=== PATIENT | male | born 1975 | race Caucasian/White ===

== ENCOUNTER 2016-12-04 15:59 | Inpatient (IN) | payer OTHER, MEDICARE ==
[2016-12-04] VITALS (7 sets, daily range): BP systolic 121–139; BP diastolic 72–85; PULSE 70–83; RESP 16–22; TEMP 99.3; O2SAT 96–99
[~2016-12-04] VITALS: Ht 185.4 cm; Wt 106.5 kg
--- NOTE | 2016-12-04 16:26 | PD ---
HPI Chief Complaint: trauma alert Time Seen by Provider: 16:08 Travel History International Travel<30 days: No Contact w/Intl Traveler<30days: No History of Present Illness HPI Patient is a 41-year-old male who was brought to the emergency room by [facility] under a trauma alert. As per patient, he had a syncopal episode while at home, reports that his walking and brushed his leg against his bed and fell. Patient reports that he was unable to get up after he fell. Patient reports that he has no sensation laying to his lower extremities. Patient reports that he has had history of lumbar fusion in the past. Patient reports that at baseline, he has no weakness to extremities. Patient with other complaints at this time, denies any headache or dizziness, denies any chest pain or abdominal pain. Allergies-Medications (Allergen,Severity, Reaction): Coded Allergies: Valium (Verified Allergy, Severe, 12/04/16) Review of Systems General / Constitutional: No: Fever Eyes: No: Visual changes HENT: No: Headaches Cardiovascular: No: Chest Pain or Discomfort Respiratory: No: Shortness of Breath Gastrointestinal: No: Abdominal Pain Genitourinary: No: Dysuria Musculoskeletal: No: Pain Skin: No Rash Neurologic: Positive: Syncope, Paresthesia, Sensory Disturbance, No: Weakness Psychiatric: No: Depression Endocrine: No: Polydipsia Hematologic/Lymphatic: No: Easy Bruising Physical Exam Narrative GENERAL: moderate distress SKIN: Focused skin assessment warm/dry. HEAD: Atraumatic. Normocephalic. EYES: Pupils equal and round. No scleral icterus. No injection or drainage. ENT: No nasal bleeding or discharge. Mucous membranes pink and moist. NECK: Trachea midline. No JVD. Patient in c-spine precautions CARDIOVASCULAR: Regular rate and rhythm. No murmur appreciated. RESPIRATORY: No accessory muscle use. Clear to auscultation. Breath sounds equal bilaterally. GASTROINTESTINAL: Abdomen soft, non-tender, nondistended. Patient with no rectal tone on exam, pt with saddle anesthesia MUSCULOSKELETAL: No obvious deformities. No clubbing. No cyanosis. No edema. Patient with lumbar midline tenderness. Patient with no sensation to lower extremities b/l, patient with no muscle tone NEUROLOGICAL: Awake and alert. No obvious cranial nerve deficits. Motor grossly within normal limits. Normal speech. PSYCHIATRIC: Appropriate mood and affect; insight and judgment normal. Data Data Last Documented VS Vital Signs Date Time Temp Pulse Resp B/P Pulse Ox O2 Delivery O2 Flow Rate FiO2 12/04/16 16:40 99 Room Air 12/04/16 16:40 16 12/04/16 16:10 2.00 Orders I-Stat Profile (12/04/16 16:07) I-Stat Creatinine (12/04/16 16:07) Complete Blood Count With Diff (12/04/16 16:07) Prothrombin Time / Inr (Pt) (12/04/16 16:07) Act Partial Throm Time (Ptt) (12/04/16 16:07) Type And Screen (12/04/16 16:07) Chest, Single Ap (12/04/16 16:07) Pelvis, Ap Only (Routine) (12/04/16 16:07) Ct Brain W/O Iv Contrast(Rout) (12/04/16 16:07) Ct Cerv Spine W/O Contrast (12/04/16 16:07) Ct Thor Spine W/O Contrast (12/04/16 16:07) Ct Lumb Spine W/O Contrast (12/04/16 16:07) Iv Access Insert/Monitor (12/04/16 16:07) Ecg Monitoring (12/04/16 16:07) Oximetry (12/04/16 16:07) Oxygen Administration (12/04/16 16:07) Electrocardiogram (12/04/16 16:17) Ckmb (Isoenzyme) Profile (12/04/16 16:17) Troponin I (12/04/16 16:17) Act Partial Throm Time (Ptt) (12/04/16 16:17) Mri L Spine W/O Contrast (12/04/16 ) Admit To Inpatient (12/04/16 ) Vital Signs (Adult) ALEX.QSHIFT (12/04/16 16:32) Intake + Output ALEX.Q8H (12/04/16 16:32) Neuro Checks ALEX.Q1H (12/04/16 16:32) Activity Bed Rest (12/04/16 16:32) Diet Npo (12/04/16 Dinner) Scd / Chucky / Foot Pump ALEX.QSHIFT (12/04/16 16:32) Resp Incentive Spirometry (12/04/16 ) Instruction (12/04/16 16:32) Complete Blood Count With Diff (12/05/16 06:00) Comprehensive Metabolic Panel (12/05/16 06:00) Sodium Chlor 0.9% 1000 Ml Inj (Ns 1000 M (12/04/16 17:00) Sodium Chloride 0.9% Flush (Ns Flush) (12/04/16 16:45) Hydromorphone Pf Inj (Dilaudid Pf Inj) (12/04/16 16:45) Acetamin-Hydrocod 325-5 Mg (Rayland 5-325 (12/04/16 16:45) Acetamin-Hydrocod 325-5 Mg (Rayland 5-325 (12/04/16 16:45) Enalaprilat Inj (Vasotec Inj) (12/04/16 16:45) Ondansetron Inj (Zofran Inj) (12/04/16 16:45) Pantoprazole Inj (Protonix Inj) (12/04/16 17:00) Docusate Sodium (Colace) (12/04/16 21:00) Magnesium Hydroxide Liq (Milk Of Magnesi (12/04/16 16:45) Consult Neurosurgery (12/04/16 ) ^ Initiate Protocol (12/04/16 16:32) Instruction (12/04/16 16:32) [facility] (12/04/16 16:45) Chlorhexidine 2% Cloth (Chlorhexidine 2% (12/05/16 04:00) Chlorhexidine 2% Cloth (Chlorhexidine 2% (12/04/16 16:45) Mrsa Pcr Surveillance (12/04/16 16:32) Inpatient Certification (12/04/16 ) Consult Lauri Gts (12/04/16 ) (Hub Use Only)Inp Phy Cons/Ref (12/04/16 ) Admit Order (Ed Use Only) (12/04/16 17:52) Labs Laboratory Tests Test 12/04/16 16:05 White Blood Count 8.2 TH/MM3 Red Blood Count 4.17 MIL/MM3 Hemoglobin 13.9 GM/DL Bedside Hemoglobin 13.6 G/DL Hematocrit 41.0 % Bedside Hematocrit 40.0 % Mean Corpuscular Volume 98.3 FL Mean Corpuscular Hemoglobin 33.4 PG Mean Corpuscular Hemoglobin 34.0 % Concent Red Cell Distribution Width 13.7 % Platelet Count 195 TH/MM3 Mean Platelet Volume 7.7 FL Neutrophils (%) (Auto) 61.4 % Lymphocytes (%) (Auto) 32.1 % Monocytes (%) (Auto) 4.5 % Eosinophils (%) (Auto) 1.5 % Basophils (%) (Auto) 0.5 % Neutrophils # (Auto) 5.1 TH/MM3 Lymphocytes # (Auto) 2.6 TH/MM3 Monocytes # (Auto) 0.4 TH/MM3 Eosinophils # (Auto) 0.1 TH/MM3 Basophils # (Auto) 0.0 TH/MM3 CBC Comment DIFF FINAL Differential Comment Prothrombin Time 10.7 SEC Prothromb Time International 1.0 RATIO Ratio Activated Partial 30.0 SEC Thromboplast Time Bedside Sodium 141 MMOL/L Bedside Potassium 3.8 MMOL/L Bedside Chloride 104 MMOL/L Bedside Blood Urea Nitrogen 9 MG/DL Bedside Creatinine 0.9 MG/DL Bedside Glucose 97 MG/DL Total Creatine Kinase 47 U/L Troponin I LESS THAN 0.02 NG/ML Blood Type O POSITIVE Antibody Screen NEGATIVE MDM Medical Screen Exam Complete: Yes Emergency Medical Condition: Yes Interpretation(s) Vital Signs Date Time Temp Pulse Resp B/P Pulse Ox O2 Delivery O2 Flow Rate FiO2 12/04/16 16:10 97 Nasal Cannula 2.00 12/04/16 16:05 97 2.00 Differential Diagnosis cauda equina, cord compression, brown Sequard syndrome, Narrative Course 41 year old male who presents to ER with c/o of no feeling to his lower extremities after having a syncopal episode today. patient reports that he has not been able to ambulate or move his lower extremities since his fall. patient has had lumbar fusion in the past. on evaluation, patient with no sensation to b/l lower extremities, patient with no rectal tone, positive for saddle anesthesia after initial trauma assessment and stabilization of patient, patient was brought for ct of his head/neck, t and l spine. Laboratory Tests Test 12/04/16 16:05 White Blood Count 8.2 TH/MM3 (4.0-11.0) Red Blood Count 4.17 MIL/MM3 (4.50-5.90) Hemoglobin 13.9 GM/DL (13.0-17.0) Bedside Hemoglobin 13.6 G/DL (12.0-17.0) Hematocrit 41.0 % (39.0-51.0) Bedside Hematocrit 40.0 % (38.0-51.0) Mean Corpuscular Volume 98.3 FL (80.0-100.0) Mean Corpuscular Hemoglobin 33.4 PG (27.0-34.0) Mean Corpuscular Hemoglobin 34.0 % Concent (32.0-36.0) Red Cell Distribution Width 13.7 % (11.6-17.2) Platelet Count 195 TH/MM3 (150-450) Mean Platelet Volume 7.7 FL (7.0-11.0) Neutrophils (%) (Auto) 61.4 % (16.0-70.0) Lymphocytes (%) (Auto) 32.1 % (9.0-44.0) Monocytes (%) (Auto) 4.5 % (0.0-8.0) Eosinophils (%) (Auto) 1.5 % (0.0-4.0) Basophils (%) (Auto) 0.5 % (0.0-2.0) Neutrophils # (Auto) 5.1 TH/MM3 (1.8-7.7) Lymphocytes # (Auto) 2.6 TH/MM3 (1.0-4.8) Monocytes # (Auto) 0.4 TH/MM3 (0-0.9) Eosinophils # (Auto) 0.1 TH/MM3 (0-0.4) Basophils # (Auto) 0.0 TH/MM3 (0-0.2) CBC Comment DIFF FINAL Differential Comment Prothrombin Time 10.7 SEC (9.8-11.6) Prothromb Time International 1.0 RATIO Ratio Activated Partial 30.0 SEC Thromboplast Time (24.3-30.1) Bedside Sodium 141 MMOL/L (138-146) Bedside Potassium 3.8 MMOL/L (3.5-4.9) Bedside Chloride 104 MMOL/L (98-109) Bedside Blood Urea Nitrogen 9 MG/DL (8-26) Bedside Creatinine 0.9 MG/DL (0.8-1.3) Bedside Glucose 97 MG/DL (60-95) Total Creatine Kinase 47 U/L (39-308) Troponin I LESS THAN 0.02 NG/ML (0.02-0.05) Blood Type O POSITIVE Antibody Screen NEGATIVE Last Impressions Thoracic Spine CT 12/04/16 0866 Signed Impressions: Service Date/Time: Sunday, December 04, 2016 16:15 - CONCLUSION: Negative trauma CT of the thoracic spine. Reynold Tineo MD Pelvis X-Ray 12/04/[id number] Signed Impressions: Service Date/Time: Sunday, December 04, 2016 15:52 - CONCLUSION: The bony pelvic ring is grossly intact. Reynold Tineo MD Lumbar Spine CT 12/04/161606 Signed Impressions: Service Date/Time: Sunday, December 04, 2016 16:15 - CONCLUSION: 1. No evidence of compression of cord or spondylolisthesis. 2. Prior surgery with laminectomy , fusion mass, and interspace plugs L4-S1. Reynold Tineo MD Head CT [id number]/04/[id number] Signed Impressions: Service Date/Time: Sunday, December 04, 2016 16:11 - CONCLUSION: Negative trauma CT brain. Reynold Tineo MD Chest X-Ray [id number]/04/[id number] Signed Impressions: Service Date/Time: Sunday, December 04, 2016 15:52 - CONCLUSION: Negative supine view of the chest. Reynold Tineo MD Cervical Spine CT 12/04/161606 Signed Impressions: Service Date/Time: Sunday, December 04, 2016 16:11 - CONCLUSION: No evidence of compression deformity or spondylolisthesis. Reynold Tineo MD case reviewed with Dr. Hoang who will see patient in consult Critical Care Narrative Aggregate critical care time was 30 minutes. Time to perform other separately billable procedures was not included in the critical care time. My time did not include minutes spent treating any other patients simultaneously or on activities that did not directly contribute to the patient's treatment. The services I provided to this patient were to treat and/or prevent clinically significant deterioration that could result in: , decompensation, deterioration I provided critical care services requiring my management, as noted below: Chart data review, documentation time, medication orders and management, vital sign assessments/reviewing monitor data, ordering and reviewing lab tests, ordering and interpreting/reviewing x-rays and diagnostic studies, care of the patient and discussion of the patient with the admitting physicians. Trauma Alert - Level One Time Surgeon Summoned: 15:42 Time Anesthesiologist Summoned: 15:46 Diagnosis Diagnosis: Primary Impression: Trauma Admitting Physician Requests: Admit Cristal Asif DO Dec 04, 2016 16:26
[2016-12-04 16:31] LABS: AUTOMATED NEUTROPHIL # 5.1 TH/MM3 (1.8-7.7); BASOPHIL % 0.5 % (0.0-2.0); EOSINOPHIL # 0.1 TH/MM3 (0-0.4); EOSINOPHIL % 1.5 % (0.0-4.0); HEMO FLAGS DIFF FINAL; LYMPH % 32.1 % (9.0-44.0); LYMPHOCYTE # 2.6 TH/MM3 (1.0-4.8); MEAN CELL VOLUME 98.3 FL (80.0-100.0); MEAN CORPUSCULAR HEMOGLOBIN 33.4 PG (27.0-34.0); MONO % 4.5 % (0.0-8.0); NEUT % 61.4 % (16.0-70.0); PLATELET COUNT 195 TH/MM3 (150-450); RED BLOOD COUNT 4.17 MIL/MM3 (4.50-5.90); RED CELL DISTRIBUTION WIDTH 13.7 % (11.6-17.2); WHITE BLOOD COUNT 8.2 TH/MM3 (4.0-11.0)
[2016-12-04 16:37] LABS: I-STAT POTASSIUM 3.8 MMOL/L (3.5-4.9)
--- NOTE | 2016-12-04 16:37 | RADRPT ---
EXAM DATE/TIME: 12/04/2016 15:52 [facility] COMPARISON: No previous studies available for comparison. INDICATIONS : Trauma alert. Fall with no feeling in lower extremities. MEDICAL HISTORY : None. SURGICAL HISTORY : None. ENCOUNTER: Initial ACUITY: 1 day PAIN SCORE: 0/10 LOCATION: Bilateral chest FINDINGS: Supine view of the chest is performed on a trauma backboard. The lungs are symmetrically aerated. N o infiltrates seen. The heart is normal in size and configuration. The visualized osseous structure s are grossly intact. No radiopaque foreign bodies. CONCLUSION: Negative supine view of the chest. Reynold Tineo MD on December 04, 2016 at 16:35 Board Certified Radiologist. This report was verified electronically.
--- NOTE | 2016-12-04 16:38 | RADRPT ---
EXAM DATE/TIME: 12/04/2016 15:52 [facility] COMPARISON: No previous studies available for comparison. INDICATIONS : Trauma alert. Fall with no feeling in lower extremities. MEDICAL HISTORY : None. SURGICAL HISTORY : None. ENCOUNTER: Initial ACUITY: 1 day PAIN SCORE: 0/10 LOCATION: Bilateral pelvis FINDINGS: Supine view of the pelvis is performed on a trauma backboard. The bony pelvic ring appears grossly i ntact. The arcuate lines of the sacrum are symmetric. Anastomosis suture projects over the sacrum. There are multiple oval ossific density is projected over the inferior right femoral head and neck m easuring up to 1.7 cm in dimension. These cannot be further localized on frontal view but may repres ent intra-articular loose bodies. CONCLUSION: The bony pelvic ring is grossly intact. Reynold Tineo MD on December 04, 2016 at 16:36 Board Certified Radiologist. This report was verified electronically.
[2016-12-04 16:41] LABS: PROTHROMBIN TIME - PATIENT 10.7 SEC (9.8-11.6)
--- NOTE | 2016-12-04 16:43 | RADRPT ---
EXAM DATE/TIME: 12/04/2016 16:11 [facility] COMPARISON: No previous studies available for comparison. INDICATIONS : Trauma alert, fall from standing. No sensation in bilateral lower extremities. RADIATION DOSE: 58.07 CTDIvol (mGy) MEDICAL HISTORY : Non-responsive. SURGICAL HISTORY : Non-responsive. ENCOUNTER: Initial ACUITY: 1 day PAIN SCALE: Non-responsive LOCATION: Bilateral head TECHNIQUE: Multiple contiguous axial images were obtained of the head. Using automated exposure control and adj ustment of the mA and/or kV according to patient size, radiation dose was kept as low as reasonably a chievable to obtain optimal diagnostic quality images. FINDINGS: There is some image degradation due to external wires to the right of the patient's head. CEREBRUM: The ventricles are normal for age. No evidence of midline shift, mass lesion, hemorrhage or acute in farction. No extra-axial fluid collections are seen. POSTERIOR FOSSA: The cerebellum and brainstem are intact. The 4th ventricle is midline. The cerebellopontine angle i s unremarkable. EXTRACRANIAL: The visualized portion of the orbits is intact. SKULL: The calvaria is intact. No evidence of skull fracture. CONCLUSION: Negative trauma CT brain. Reynold Tineo MD on December 04, 2016 at 16:40 Board Certified Radiologist. This report was verified electronically.
[2016-12-04] MEDS ORDERED: MAGNESIUM HYDROXIDE SUSP 30 ML CUP PO PRN (16:45)
[2016-12-04] MEDS ORDERED: SODIUM CHLORIDE 0.9% FLUSH 10 ML FLUSH IV FLUSH PRN (16:45)
[2016-12-04] MEDS ORDERED: ACETAMINOPHEN/HYDROcodone 325 MG/5 MG TAB PO PRN (16:45)
[2016-12-04] MEDS ORDERED: ONDANSETRON HCL 4 MG/2 ML VIAL IV PRN (16:45)
[2016-12-04] MEDS ORDERED: CHLORHEXIDINE GLUCONATE 2 % 1 PACK (2 CLOTHS) TOP PRN (16:45)
[2016-12-04] MEDS ORDERED: ENALAPRILAT 1.25 MG/ML VIAL IV PRN (16:45)
[2016-12-04] MEDS ORDERED: MISCELLANEOUS NURSING INFORMATION XX SCH (16:45)
--- NOTE | 2016-12-04 16:45 | RADRPT ---
EXAM DATE/TIME: 12/04/2016 16:11 [facility] COMPARISON: No previous studies available for comparison. INDICATIONS : Trauma alert, fall from standing. No sensation in bilateral lower extremities. RADIATION DOSE: 19.16 CTDIvol (mGy) MEDICAL HISTORY : Non-responsive. SURGICAL HISTORY : Non-responsive. ENCOUNTER: Initial ACUITY: 1 day PAIN SCALE: Non-responsive LOCATION: Bilateral neck TECHNIQUE: Volumetric scanning of the cervical spine was performed. Multiplanar reconstructions in the sagittal, coronal and oblique axial planes were performed. Using automated exposure control and adjustment o f the mA and/or kV according to patient size, radiation dose was kept as low as reasonably achievable to obtain optimal diagnostic quality images. FINDINGS: VERTEBRAE: Normal vertebral body height. ALIGNMENT: No evidence of subluxation. C2-C3: No fracture seen. The bony neural foramina are widely patent. C3-C4: No fracture seen. The bony neural foramina are widely patent. C4-C5: No fracture seen. The bony neural foramina are widely patent. C5-C6: No fracture seen. The bony neural foramina are widely patent. C6-C7: No fracture seen. The bony neural foramina are widely patent. C7-T1: No fracture seen. The bony neural foramina are widely patent. CONCLUSION: No evidence of compression deformity or spondylolisthesis. Reynold Tineo MD on December 04, 2016 at 16:41 Board Certified Radiologist. This report was verified electronically.
--- NOTE | 2016-12-04 16:51 | RADRPT ---
EXAM DATE/TIME: 12/04/2016 16:15 [facility] COMPARISON: No previous studies available for comparison. INDICATIONS : Trauma alert, fall from standing. No sensation in bilateral lower extremities. RADIATION DOSE: 35.56 CTDIvol (mGy) ; Combined studies MEDICAL HISTORY : Non-responsive. SURGICAL HISTORY : Non-responsive. ENCOUNTER: Initial ACUITY: 1 day PAIN SCALE: Non-responsive LOCATION: Bilateral lower back TECHNIQUE: Volumetric scanning of the lumbar spine was performed. Multiplanar reconstructions in the sagittal, coronal and oblique axial planes were performed. Using automated exposure control and adjustment of the mA and/or kV according to patient size, radiation dose was kept as low as reasonably achievable t o obtain optimal diagnostic quality images. FINDINGS: There is prior surgery at the L4-S1 level with intervertebral plug centrally at L4-5 anteriorly at L5 -S1. Lateral fusion mass posteriorly extends from L3-L5 bilaterally and there is laminectomy at L4-5 and L5-S1.. There is moderately severe bilateral bony neural foraminal stenosis at L4-5 and L5-S1. There are old transpedicular screw tracks seen bilaterally at L5 and S1. At L3-4, there is broad-based bulging of the disc which extends into the neural foramen bilaterally. There is flattening the ventral margin of the thecal sac. No evidence of disc protrusion. At L1-2 and L2-3, the thecal sac is normal in dimension and no evidence of disc bulge or protrusion. The neural foramina are patent. CONCLUSION: 1. No evidence of compression of cord or spondylolisthesis. 2. Prior surgery with laminectomy, fusion mass, and interspace plugs L4-S1. Reynold Tineo MD on December 04, 2016 at 16:43 Board Certified Radiologist. This report was verified electronically.
[2016-12-04 16:58] LABS: CREATINE KINASE 47 U/L (39-308)
--- NOTE | 2016-12-04 17:24 | RADRPT ---
EXAM DATE/TIME: 12/04/2016 16:15 [facility] COMPARISON: No previous studies available for comparison. INDICATIONS : Trauma alert, fall from standing. No sensation in bilateral lower extremities. RADIATION DOSE: 35.56 CTDIvol (mGy) ; Combined studies MEDICAL HISTORY : Non-responsive. SURGICAL HISTORY : Non-responsive. ENCOUNTER: Initial ACUITY: 1 day PAIN SCALE: Non-responsive LOCATION: Bilateral upper back TECHNIQUE: Volumetric scanning of the thoracic spine was performed. Multiplanar reconstructions in the sagittal , coronal and oblique axial planes were performed. Using automated exposure control and adjustment o f the mA and/or kV according to patient size, radiation dose was kept as low as reasonably achievable to obtain optimal diagnostic quality images. FINDINGS: There is normal alignment of the vertebral bodies of the thoracic spine and preservation of vertebral body height. The posterior elements are normal alignment. The spinous processes are intact. Overa ll bone density appears diffusely decreased. On axial images through the vertebral bodies, no eviden ce of fracture. Prominent calcified right hilar nodes and a calcified right lower lung nodule and di ffuse calcifications the visualized portion of the spleen suggest granulomatous disease. CONCLUSION: Negative trauma CT of the thoracic spine. Reynold Tineo MD on December 04, 2016 at 17:16 Board Certified Radiologist. This report was verified electronically.
[2016-12-04] MEDS ORDERED: diphenhydrAMINE HCL 50 MG/ML VIAL IV PUSH ONE (18:15)
[2016-12-04] MEDS ORDERED: LORazepam 2 MG/ML VIAL IV PUSH ONE (19:00)
[2016-12-04] MEDS ORDERED: GADODIAMIDE PF 287 MG/ML 20 ML VIAL (for RAD MRI) IV ONE (19:03)
--- NOTE | 2016-12-04 19:33 | PD.CONS ---
[facility] Service Neurosurg Consult Requested By Dr Metcalf Reason for Consult Trauma alert Primary Care Physician History of Present Illness This is a 41-year-old male who was brought to the emergency room by [facility] as a trauma alert. Apparently he had a syncopal episode while at home, He reports that he brushed his leg against his bed and fell. He was unable to get up after he fell. He reports that he could not move either lower extremity and was paralyzed. Patient reports that he has no sensation in his lower extremities. He has had history of lumbar fusion in the past. He denies any headache or dizziness, denies any chest pain or abdominal pain. CT of the cervical lumbar and thoracic spine were obtained. Neurosurgical consultation was requested Past Family Social History Allergies: Coded Allergies: Morphine (Verified Allergy, Severe, 12/04/16) childhood reaction Valium (Verified Allergy, Severe, 12/04/16) Physical Exam Vital Signs Vital Signs Date Time Temp Pulse Resp B/P Pulse Ox O2 Delivery O2 Flow Rate FiO2 12/04/16 18:23 71 20 121/72 99 Room Air 12/04/16 16:40 99 Room Air 12/04/16 16:40 16 99 Room Air 12/04/16 16:10 97 Nasal Cannula 2.00 12/04/16 16:05 97 2.00 Physical Exam Mr Jay is alert, awake and oriented to time, place and person. Speech is fluent. Higher cognitive functions are normal. Cranial nerve examination demonstrates the pupils to be equal, round, and reactive to light. Extra-ocular movements are intact. Facial motor and sensory function are normal and symmetrical. Gross hearing is intact, bilaterally. The uvula is midline and elevates symmetrically with the soft palate. Sternocleidomastoid and trapezius muscles have normal and symmetrical strength. Other cranial nerves are intact. Neck is soft and supple. Cervical spine has a full range of motion in anterior flexion, extension, lateral bending, and rotation without pain. There is no tenderness to palpation to the spinous processes or paraspinal muscles. Muscle testing reveals normal bulk and tone overall without rigidity, spasticity , fasciculations, or atrophy. Muscle strength is 5/5 in all muscle groups of both upper extremities including deltoid, biceps, triceps, brachioradialis, wrist extension and manager play. In the lower extremities, strength is 5/5 in both iliopsoas, quadriceps, hamstrings, plantar flexion, dorsiflexion, and extensor hallicus longus. Sensory examination is intact to light touch and sharp/dull discrimination in both the upper extremities, and diffusely decreased in his left lower extremity Deep tendon reflexes are 2+ and symmetrical in the biceps, triceps, and brachioradialis, bilaterally, in the upper extremities. In the lower extremities , the patellar and Achilles are 2+, bilaterally. There is a bilateral plantar flexion response. Hoffmanns sign is negative. There is no clonus or other abnormal reflexes noted. Cerebellar examination is intact to [id number] test, rapid rhythmic alternating motion. There is no dysmetria, dysdiadochokinesia, truncal ataxia Laboratory Laboratory Tests Test 12/04/16 16:05 White Blood Count 8.2 Red Blood Count 4.17 Hemoglobin 13.9 Bedside Hemoglobin 13.6 Hematocrit 41.0 Bedside Hematocrit 40.0 Mean Corpuscular Volume 98.3 Mean Corpuscular Hemoglobin 33.4 Mean Corpuscular Hemoglobin 34.0 Concent Red Cell Distribution Width 13.7 Platelet Count 195 Mean Platelet Volume 7.7 Neutrophils (%) (Auto) 61.4 Lymphocytes (%) (Auto) 32.1 Monocytes (%) (Auto) 4.5 Eosinophils (%) (Auto) 1.5 Basophils (%) (Auto) 0.5 Neutrophils # (Auto) 5.1 Lymphocytes # (Auto) 2.6 Monocytes # (Auto) 0.4 Eosinophils # (Auto) 0.1 Basophils # (Auto) 0.0 CBC Comment DIFF FINAL Differential Comment Prothrombin Time 10.7 Prothromb Time International 1.0 Ratio Activated Partial 30.0 Thromboplast Time Bedside Sodium 141 Bedside Potassium 3.8 Bedside Chloride 104 Bedside Blood Urea Nitrogen 9 Bedside Creatinine 0.9 Bedside Glucose 97 Total Creatine Kinase 47 Troponin I LESS THAN 0.02 Blood Type O POSITIVE Antibody Screen NEGATIVE Result Diagram: 12/04/16 1605 Imaging Last Impressions Thoracic Spine CT 12/04/16 1607 Signed Impressions: Service Date/Time: Sunday, December 04, 2016 16:15 - CONCLUSION: Negative trauma CT of the thoracic spine. Reynold Tineo MD Pelvis X-Ray 12/04/161606 Signed Impressions: Service Date/Time: Sunday, December 04, 2016 15:52 - CONCLUSION: The bony pelvic ring is grossly intact. Reynold Tineo MD Lumbar Spine CT 12/04/161606 Signed Impressions: Service Date/Time: Sunday, December 04, 2016 16:15 - CONCLUSION: 1. No evidence of compression of cord or spondylolisthesis. 2. Prior surgery with laminectomy , fusion mass, and interspace plugs L4-S1. Reynold Tineo MD Head CT 12/04/161606 Signed Impressions: Service Date/Time: Sunday, December 04, 2016 16:11 - CONCLUSION: Negative trauma CT brain. Reynold Tineo MD Chest X-Ray 12/04/161606 Signed Impressions: Service Date/Time: Sunday, December 04, 2016 15:52 - CONCLUSION: Negative supine view of the chest. Reynold Tineo MD Cervical Spine CT 12/04/161606 Signed Impressions: Service Date/Time: Sunday, December 04, 2016 16:11 - CONCLUSION: No evidence of compression deformity or spondylolisthesis. Reynold Tineo MD Lumbar Spine MRI 12/04/16 0000 Signed Impressions: Service Date/Time: Sunday, December 04, 2016 18:27 - CONCLUSION: 1. There is some mild narrowing of the thecal sac due to posterior fatty hypertrophy from mid L2 to mid L3. The AP dimension of the thecal sac is narrowed to 7 mm. 2. Some mild enhancing tissue posterior to the L4 and L5 level without significant deformity of the thecal sac. There is also mild enhancement in the marrow of L4 and L5 about the surgical level, but no abnormal enhancement within the disc space. 3. Bony neural foramina are widely patent. The posterior margin of thecal sac at the laminectomy sites is smooth without impression. Reynold Tineo MD Entire Spine MRI 12/04/16 0000 Signed Impressions: Service Date/Time: Sunday, December 04, 2016 18:59 - CONCLUSION: 1. Small disc protrusions left paracentral T4-T5 and lateral T6-7 without evidence of cord compression. 2. No epidural abnormalities. The vertebral bodies are in normal alignment with normal signal. Reynold Tineo MD Attending Statement Neuro. I have reviewed his clinical and radiological findings. Start neuro checks in a serial fashion. Recommend follow up MRI of lumbar, thoracic, cervical spine. The patient has had prior lumbar spine surgery and it is important to rule out an AP lateral abscess or hematoma. I would defer further recommendations to upon the completion of his workup Consult neurology for syncope workup, EEG, echocardiogram, carotid Duplex Pulmonary. aggressive pulmonary toilette, nasotracheal suction, and breathing treatments with nebulizers. PT and OT evaluation Nutrition. Oral diet Renal. monitor closely urine output, BUN and creatinine Endocrine. Monitor serial Acu checks and SSI as needed in detail ID monitor for signs of infection Protonix for stress ulcer prophylaxis Chucky hose and SCD's for DVT prophylaxis Keith Hoang MD Dec 04, 2016 19:33
[2016-12-04] MEDS: SODIUM CHLOR 0.9% 1000 ML INJ 1,000 ML IV SCH ×2 (19:40→22:25)
[2016-12-04] MEDS: PANTOPRAZOLE SODIUM 40 MG VIAL IVP SCH (20:00)
--- NOTE | 2016-12-04 20:09 | MH ---
cc: HUMPHREY OWENS DATE OF ADMISSION: 12/04/2016 HISTORY OF PRESENT ILLNESS: This is a 41-year-old male who was brought in as a trauma alert. By reports, the patient was walking and tripped on the side of his bed and fell following which he was unable to move. He had no feeling in his lower extremities. He was brought in as a trauma alert with complaint of loss of sensation to his lower extremities as well as back pain. He is unsure of loss of consciousness. No headaches or chest pains or shortness of breath. No abdominal pains. PAST MEDICAL HISTORY: Past medical history is significant for: 1. Chronic back pain. 2. Anxiety. MEDICATIONS: He is on narcotics for pain as well as anti-anxiety medications. SOCIAL HISTORY: He denies tobacco use. FAMILY HISTORY Noncontributory. REVIEW OF SYSTEMS: Review of systems significant for above. All other ten-point review negative. PHYSICAL EXAMINATION: GENERAL: On exam, he is laying on stretcher in no acute distress. HEAD, EYES, EARS, NOSE, THROAT: His pupils are equal and reactive. His trachea is midline. NECK: Without JVD. LUNGS: Respirations clear. CARDIOVASCULAR: Regular. GASTROINTESTINAL: Soft, nontender. MUSCULOSKELETAL: No deformities. NEUROLOGIC: The patient has decreased strength in his lower extremities and decreased sensation bilaterally. BACK: No step-offs or tenderness in the lumbar spine. RECTAL: He has decreased rectal tone. RADIOLOGICAL IMAGING: CT of the head was negative. CT of the C-spine negative. CT of the thoracic spine shows no acute fractures. CT of the lumbar spine shows no evidence of compression or spondylolisthesis, prior laminectomy evidence with interspace plug. ASSESSMENT: This is a patient here following a fall who has paralysis of the lower extremities. PLAN: 1. The patient is to have an MRI of his lower thoracic and lumbar spine. 2. Neurosurgery has been consulted. 3. Will admit the patient to the [facility] for observation. MD CRISSY Haji/NANCY /7:46 PM /7:58 PM
--- NOTE | 2016-12-04 20:33 | RADRPT ---
EXAM DATE/TIME: 12/04/2016 18:59 [facility] COMPARISON: MRI LUMBAR SPINE W & W/O CONTRAST, December 04, 2016, 18:27. INDICATIONS : Trauma. Fall. Inability to feel lower extemities. CONTRAST: 20 cc Omniscan (gadodiamide) IV MEDICAL HISTORY : None. SURGICAL HISTORY : Fusion, lumbar. Inguinal hernia repair. Rotator cuff, left. ENCOUNTER: Initial ACUITY: 1 day PAIN SCORE: 4/10 LOCATION: Paraspinal TECHNIQUE: Screening MRI of the entire spinal axis was performed in the sagittal and axial planes. FINDINGS: The screening portion of the examination includes the cervical and thoracic spine. The lumbar spine is reported separately. There is normal alignment of vertebral bodies of the cervical and thoracic s pine and preservation of vertebral body height. No signal abnormality seen within the marrow. The t horacic and cervical cord has a normal configuration without evidence of cord compression. Axial brit ges through each of the interspaces were performed and there is evidence of a mild left-sided protrus ion of the disc at C4-5 measuring 4 mm in AP dimension. This comes in contact with the thoracic cord but does not cause cord compression. There is also a small left paracentral protrusion of the T67 d isc near the neural foramen which measures 4 mm in AP dimension. Some CSF is still seen about the th oracic cord and there is no significant deformity of the thecal sac in axial plane. CONCLUSION: 1. Small disc protrusions left paracentral T4-T5 and lateral T6-7 without evidence of cord compressio n. 2. No epidural abnormalities. The vertebral bodies are in normal alignment with normal signal. Reynold Tineo MD on December 04, 2016 at 20:23 Board Certified Radiologist. This report was verified electronically.
--- NOTE | 2016-12-04 20:44 | RADRPT ---
EXAM DATE/TIME: 12/04/2016 18:27 [facility] COMPARISON: No previous studies available for comparison. INDICATIONS : Trauma. Fall. Inability to feel lower extemities. CONTRAST: 20 cc Omniscan (gadodiamide) IV MEDICAL HISTORY : None. SURGICAL HISTORY : Fusion, lumbar. Inguinal hernia repair. Rotator cuff, left. ENCOUNTER: Initial ACUITY: 1 day PAIN SCORE: 4/10 LOCATION: Paraspinal TECHNIQUE: Multiplanar multisequence MRI of the lumbar spine was performed with and without contrast. FINDINGS: There is normal alignment of the vertebral bodies of the lumbar spine. Prior laminectomy left L4-5 a nd L5-S1. Interspace plugs are present centrally at L4-5 anteriorly at L5-S1. There is some edema o f the marrow of L4 and L5, but no edema seen about L5-S1. Post contrast exam, there is a mild diffus e pattern of contrast enhancement in the L4 and L5 marrow correlating to the areas of edema. There i s no abnormal enhancement in the interspace. There is mild enhancing epidural soft tissue which exte nds from L4-S1 and measures 6 mm or less. The epidural soft tissue does not cause any deformity of t he thecal sac. There is some hypertrophy of the epidural fat posterior to the thecal sac from mid L2 through mid L3 which does cause a mild narrowing of the thecal sac to 7 mm. No abnormal enhancement seen in this fa t. The bony neural foramina are pa and widely patent at all levels. The posterior margin of the thecal sac at the laminectomy sites is smooth without narrowing or indentation. CONCLUSION: 1. There is some mild narrowing of the thecal sac due to posterior fatty hypertrophy from mid L2 to m id L3. The AP dimension of the thecal sac is narrowed to 7 mm. 2. Some mild enhancing tissue posterior to the L4 and L5 level without significant deformity of the t hecal sac. There is also mild enhancement in the marrow of L4 and L5 about the surgical level, but n o abnormal enhancement within the disc space. 3. Bony neural foramina are widely patent. The posterior margin of thecal sac at the laminectomy sit es is smooth without impression. Reynold Tineo MD on December 04, 2016 at 20:31 Board Certified Radiologist. This report was verified electronically.
[2016-12-04] MEDS: DOCUSATE SODIUM 100 MG CAP PO SCH (21:00)
[2016-12-04] MEDS: CHLORHEXIDINE GLUCONATE 2 % 1 PACK (2 CLOTHS) TOP SCH (21:23)
[2016-12-04] MEDS: ACETAMINOPHEN/HYDROcodone 325 MG/5 MG TAB PO PRN (21:31)
[2016-12-05] VITALS (9 sets, daily range): BP systolic 122–144; BP diastolic 79–82; PULSE 67–83; RESP 12–19; TEMP 96.7–99.3; O2SAT 94–96
[2016-12-05 04:20] LABS: AUTOMATED NEUTROPHIL # 3.7 TH/MM3 (1.8-7.7); BASOPHIL # 0.1 TH/MM3 (0-0.2); BASOPHIL % 1.1 % (0.0-2.0); EOSINOPHIL # 0.1 TH/MM3 (0-0.4); EOSINOPHIL % 1.9 % (0.0-4.0); HEMATOCRIT 38.3 % (39.0-51.0); HEMO FLAGS DIFF FINAL; LYMPH % 43.1 % (9.0-44.0); LYMPHOCYTE # 3.3 TH/MM3 (1.0-4.8); MEAN CELL VOLUME 98.1 FL (80.0-100.0); MEAN CORPUSCULAR HEMOGLOBIN 33.2 PG (27.0-34.0); MEAN CORPUSCULAR HGB CONC 33.9 % (32.0-36.0); NEUT % 48.9 % (16.0-70.0); PLATELET COUNT 187 TH/MM3 (150-450); RED BLOOD COUNT 3.91 MIL/MM3 (4.50-5.90); RED CELL DISTRIBUTION WIDTH 14.1 % (11.6-17.2); WHITE BLOOD COUNT 7.6 TH/MM3 (4.0-11.0)
[2016-12-05 04:50] LABS: ALT (GPT) 24 U/L (12-78); ANION GAP 9 MEQ/L (5-15); AST (GOT) 13 U/L (15-37); BICARBONATE 24.9 MEQ/L (21.0-32.0); BLOOD UREA NITROGEN 9 MG/DL (7-18); CHLORIDE 109 MEQ/L (98-107); GLOMERULAR FILTRATION RATE 83 ML/MIN (>89); POTASSIUM 3.5 MEQ/L (3.5-5.1); SODIUM (NA) 143 MEQ/L (136-145)
[2016-12-05 04:53] LABS: ALKALINE PHOSPHATASE 63 U/L (45-117); TOTAL BILIRUBIN ADULT 0.2 MG/DL (0.2-1.0)
[2016-12-05] MEDS: DOCUSATE SODIUM 100 MG CAP PO SCH ×2 (09:07→20:51)
[2016-12-05] MEDS: HYDROmorphone HCL PF 1 MG/ML VIAL IVP PRN ×2 (09:07→14:39)
[2016-12-05] MEDS: ACETAMINOPHEN/HYDROcodone 325 MG/5 MG TAB PO PRN ×3 (11:36→20:52)
[2016-12-05] MEDS: SODIUM CHLOR 0.9% 1000 ML INJ 1,000 ML IV SCH (11:36)
--- NOTE | 2016-12-05 14:10 | EKG ---
Date Performed: 12/04/2016 Time Performed: 20:06:25 PTAGE: 89 years EKG: Sinus rhythm NORMAL ECG NO PREVIOUS TRACING DOCTOR: Delroy Morel Interpretating Date/Time 12/05/2016 14:08:03
[2016-12-05] MEDS: PANTOPRAZOLE SODIUM 40 MG VIAL IVP SCH (16:05)
--- NOTE | 2016-12-05 17:13 | HHI.PR ---
Subjective Subjective Notes Complains of back pain Objective Vitals/I&O Vital Signs Date Time Temp Pulse Resp B/P Pulse Ox O2 Delivery O2 Flow Rate FiO2 12/05/16 16:10 96.7 67 19 144/82 95 12/05/16 07:15 Room Air 12/04/16 16:10 2.00 Labs Laboratory Tests Test 12/04/16 12/05/16 21:30 04:00 Nasal Screen MRSA (PCR) MRSA NOT DETECTED White Blood Count 7.6 Red Blood Count 3.91 Hemoglobin 13.0 Hematocrit 38.3 Mean Corpuscular Volume 98.1 Mean Corpuscular Hemoglobin 33.2 Mean Corpuscular Hemoglobin 33.9 Concent Red Cell Distribution Width 14.1 Platelet Count 187 Mean Platelet Volume 7.6 Neutrophils (%) (Auto) 48.9 Lymphocytes (%) (Auto) 43.1 Monocytes (%) (Auto) 5.0 Eosinophils (%) (Auto) 1.9 Basophils (%) (Auto) 1.1 Neutrophils # (Auto) 3.7 Lymphocytes # (Auto) 3.3 Monocytes # (Auto) 0.4 Eosinophils # (Auto) 0.1 Basophils # (Auto) 0.1 CBC Comment DIFF FINAL Differential Comment Sodium Level 143 Potassium Level 3.5 Chloride Level 109 Carbon Dioxide Level 24.9 Anion Gap 9 Blood Urea Nitrogen 9 Creatinine 0.80 Estimat Glomerular Filtration 83 Rate Random Glucose 87 Calcium Level 8.0 Total Bilirubin 0.2 Aspartate Amino Transf 13 (AST/SGOT) Alanine Aminotransferase 24 (ALT/SGPT) Alkaline Phosphatase 63 Total Protein 6.2 Albumin 2.9 Radiology Last Impressions Thoracic Spine CT 12/04/161606 Signed Impressions: Service Date/Time: Sunday, December 04, 2016 16:15 - CONCLUSION: Negative trauma CT of the thoracic spine. Reynold Tineo MD Pelvis X-Ray 12/04/161606 Signed Impressions: Service Date/Time: Sunday, December 04, 2016 15:52 - CONCLUSION: The bony pelvic ring is grossly intact. Reynold Tineo MD Lumbar Spine CT 12/04/161606 Signed Impressions: Service Date/Time: Sunday, December 04, 2016 16:15 - CONCLUSION: 1. No evidence of compression of cord or spondylolisthesis. 2. Prior surgery with laminectomy , fusion mass, and interspace plugs L4-S1. Reynold Tineo MD Head CT 12/04/16 160 Signed Impressions: Service Date/Time: Sunday, December 04, 2016 16:11 - CONCLUSION: Negative trauma CT brain. Reynold Tineo MD Chest X-Ray 12/04/161606 Signed Impressions: Service Date/Time: Sunday, December 04, 2016 15:52 - CONCLUSION: Negative supine view of the chest. Reynold Tineo MD Cervical Spine CT 12/04/16 160 Signed Impressions: Service Date/Time: Sunday, December 04, 2016 16:11 - CONCLUSION: No evidence of compression deformity or spondylolisthesis. Reynold Tineo MD Lumbar Spine MRI 12/04/16 0000 Signed Impressions: Service Date/Time: Sunday, December 04, 2016 18:27 - CONCLUSION: 1. There is some mild narrowing of the thecal sac due to posterior fatty hypertrophy from mid L2 to mid L3. The AP dimension of the thecal sac is narrowed to 7 mm. 2. Some mild enhancing tissue posterior to the L4 and L5 level without significant deformity of the thecal sac. There is also mild enhancement in the marrow of L4 and L5 about the surgical level, but no abnormal enhancement within the disc space. 3. Bony neural foramina are widely patent. The posterior margin of thecal sac at the laminectomy sites is smooth without impression. Reynold Tineo MD Entire Spine MRI 12/04/16 0000 Signed Impressions: Service Date/Time: Sunday, December 04, 2016 18:59 - CONCLUSION: 1. Small disc protrusions left paracentral T4-T5 and lateral T6-7 without evidence of cord compression. 2. No epidural abnormalities. The vertebral bodies are in normal alignment with normal signal. Reynold Tineo MD Narrative Exam GENERAL: 41-year-old well-nourished, well developed male lying in bed. SKIN: Warm and dry. HEAD: Normocephalic. NECK: Trachea midline. No JVD. CARDIOVASCULAR: Regular rate and rhythm. RESPIRATORY: No accessory muscle use. Lungs clear to auscultation. Breath sounds equal bilaterally. GASTROINTESTINAL: Abdomen soft, non-tender, nondistended. + BS. MUSCULOSKELETAL: Extremities without cyanosis, or edema. No obvious deformities. BUE 5/5 strength, BLE 4/5 strength. Decreased sensation reported in BLE. + pulses x4. NEUROLOGICAL: Awake and alert. Normal speech. A/P Assessment and Plan INJURIES: None- BLE numbness PMHx: lumbar laminectomy Diet: Regular, tolerating Pulm: IS, encourage patient use Pain: Lindsay, Dilaudid IV. Activity: OOB. PT ordered. GI: Pepcid Bowel: Colace, MOM, lactulose. DVT: SCDs BLE numbness Neurosurgery consulted MRI back pending Serial neuro checks Supportive care Pain controlled PTOOB Neurology consult Plan of care discussed with patient at bedside. Attending Statement The exam, history, and the medical decision-making described in the above note were completed with the assistance of the mid-level provider. I reviewed and agree with the findings presented. I attest that I had a [id number] encounter with the patient on the same day, and personally performed and documented my assessment and findings in the medical record. Kameron Martinez Dec 05, 2016 17:13 Yoni Marquez MD Dec 06, 2016 15:17
--- NOTE | 2016-12-05 18:14 | HHI.NSPN ---
Note Status Status: Progress Note Interval History Interval History This is a 41-year-old male who was brought to the emergency room by [facility] as a trauma alert. Apparently he had a syncopal episode while at home, He reports that he brushed his leg against his bed and fell. He was unable to get up after he fell. He reports that he could not move either lower extremity and was paralyzed. Patient reports that he has no sensation in his lower extremities. He has had history of lumbar fusion in the past. He denies any headache or dizziness, denies any chest pain or abdominal pain. CT of the cervical lumbar and thoracic spine were obtained. Neurosurgical consultation was requested 12/05. There has been a dramatic improvement in his condition. He is neurologically at baseline Labs, Micro, & Vital Signs Results Date Time Temp Pulse Resp B/P Pulse Ox O2 Delivery O2 Flow Rate FiO2 12/05/16 16:10 96.7 67 19 144/82 95 12/05/16 10:00 83 12/05/16 08:00 70 12/05/16 07:15 99.3 70 12 122/79 94 12/05/16 07:15 94 Room Air 12/05/16 06:00 68 12/05/16 04:00 68 12/05/16 02:00 71 12/05/16 00:00 80 12/04/16 22:00 83 12/04/16 21:46 71 12/04/16 21:46 98 Room Air 12/04/16 21:41 99.3 70 22 139/85 96 12/04/16 18:23 71 20 121/72 99 Room Air 12/05/16 07:00 Intake Total 1488 ml Output Total 400 ml Balance 1088 ml Constitutional Vital Signs Date Time Temp Pulse Resp B/P Pulse Ox O2 Delivery O2 Flow Rate FiO2 12/05/16 16:10 96.7 67 19 144/82 95 12/05/16 10:00 83 12/05/16 08:00 70 12/05/16 07:15 99.3 70 12 122/79 94 12/05/16 07:15 94 Room Air 12/05/16 06:00 68 12/05/16 04:00 68 12/05/16 02:00 71 12/05/16 00:00 80 12/04/16 22:00 83 12/04/16 21:46 71 12/04/16 21:46 98 Room Air 12/04/16 21:41 99.3 70 22 139/85 96 12/04/16 18:23 71 20 121/72 99 Room Air 12/05/16 07:00 Intake Total 1488 ml Output Total 400 ml Balance 1088 ml Review of Systems/Exam Exam Mr Jay is alert, awake and oriented to time, place and person. Speech is fluent. Higher cognitive functions are normal. Cranial nerve examination demonstrates the pupils to be equal, round, and reactive to light. Extra-ocular movements are intact. Facial motor and sensory function are normal and symmetrical. Gross hearing is intact, bilaterally. The uvula is midline and elevates symmetrically with the soft palate. Sternocleidomastoid and trapezius muscles have normal and symmetrical strength. Other cranial nerves are intact. Neck is soft and supple. Cervical spine has a full range of motion in anterior flexion, extension, lateral bending, and rotation without pain. There is no tenderness to palpation to the spinous processes or paraspinal muscles. Muscle testing reveals normal bulk and tone overall without rigidity, spasticity , fasciculations, or atrophy. Muscle strength is 5/5 in all muscle groups of both upper extremities including deltoid, biceps, triceps, brachioradialis, wrist extension and corporate specialist. In the lower extremities, strength is 5/5 in both iliopsoas, quadriceps, hamstrings, plantar flexion, dorsiflexion, and extensor hallicus longus. Sensory examination is intact to light touch and sharp/dull discrimination Deep tendon reflexes are 2+ and symmetrical in the biceps, triceps, and brachioradialis, bilaterally, in the upper extremities. In the lower extremities , the patellar and Achilles are 2+, bilaterally. There is a bilateral plantar flexion response. Hoffmanns sign is negative. There is no clonus or other abnormal reflexes noted. Cerebellar examination is intact to [id number] test, rapid rhythmic alternating motion. There is no dysmetria, dysdiadochokinesia, truncal ataxia Medications Current Medications Current Medications Sodium Chloride (NS 1000 ml Inj) 1,000 ml @ 100 mls/hr Q10H IV Last administered on 12/05/16 11:36; Start 12/04/16 at 17:00; Stop 12/05/16 at 17:11; Status DC Sodium Chloride (NS Flush) 2 ml UNSCH PRN IV FLUSH FLUSH AFTER USING IV ACCESS ; Start 12/04/16 at 16:45 Hydromorphone HCl (Dilaudid Pf Inj) 0.5 mg Q3H PRN IVP BREAKTHROUGH PAIN Last administered on 12/05/16 14:39; Start 12/04/16 at 16:45 Acetaminophen/ Hydrocodone Bitart ([place] 5-325 Mg) 1 tab Q4H PRN PO PAIN SCALE 1 TO 5; Start 12/04/16 at 16:45 Acetaminophen/ Hydrocodone Bitart ([place] 5-325 Mg) 2 tab Q4H PRN PO PAIN SCALE 6 TO 10 Last administered on 12/05/16 16:48; Start 12/04/16 at 16:45 Enalaprilat (Vasotec Inj) 1.25 mg Q8H PRN IV SBP>180, DBP>95; Start 12/04/16 at 16:45 Ondansetron HCl (Zofran Inj) 4 mg Q6H PRN IV NAUSEA OR VOMITING; Start 12/04/16 at 16:45 Pantoprazole Sodium (Protonix Inj) 40 mg Q24H IVP Last administered on 16:05; Start 12/04/16 at 17:00; Stop 12/05/16 at 17:09; Status DC Docusate Sodium (Colace) 100 mg BID PO Last administered on 12/05/16 09:07; Start 12/04/16 at 21:00 Magnesium Hydroxide (Milk Of Magnesia Liq) 30 ml Q6H PRN PO CONSTIPATION; Start 12/04/16 at 16:45 Miscellaneous Information 1 [id number] XX Last administered on 12/04/16 21:45; Start 12/04/16 at 16:45 Chlorhexidine Gluconate (Chlorhexidine 2% Cloth) 3 pack Taper DAILY@04 TOP Last administered on 12/04/16 21:23; Start 12/05/16 at 04:00; Stop 12/01/17 at 03 :59 Chlorhexidine Gluconate (Chlorhexidine 2% Cloth) 3 pack UNSCH PRN TOP HYGIENIC CARE; Start 12/04/16 at 16:45 Diphenhydramine HCl (Benadryl Inj) 50 mg ONCE ONCE IV PUSH Last administered on 12/04/16 18:18; Start 12/04/16 at 18:15; Stop 12/04/16 at 18:18; Status DC Lorazepam (Ativan Inj) 1 mg ONCE ONCE IV PUSH Last administered on 12/04/16 19 :00; Start 12/04/16 at 19:00; Stop 12/04/16 at 19:01; Status DC Gadodiamide (Omniscan Pf Inj) 20 ml STK-MED ONCE IV Last administered on 19:03; Start 12/04/16 at 19:03; Stop 12/04/16 at 19:04; Status DC Lactulose (Lactulose Liq) 30 ml DAILY PO ; Start 12/06/16 at 09:00 Famotidine (Pepcid) 20 mg BID PO ; Start 12/05/16 at 21:00 Medical Decision Making MDM Remarks Last Impressions Thoracic Spine CT 12/04/161606 Signed Impressions: Service Date/Time: Sunday, December 04, 2016 16:15 - CONCLUSION: Negative trauma CT of the thoracic spine. Reynold Tineo MD Pelvis X-Ray 12/04/161606 Signed Impressions: Service Date/Time: Sunday, December 04, 2016 15:52 - CONCLUSION: The bony pelvic ring is grossly intact. Reynold Tineo MD Lumbar Spine CT 12/04/161606 Signed Impressions: Service Date/Time: Sunday, December 04, 2016 16:15 - CONCLUSION: 1. No evidence of compression of cord or spondylolisthesis. 2. Prior surgery with laminectomy , fusion mass, and interspace plugs L4-S1. Reynold Tineo MD Head CT 12/04/161606 Signed Impressions: Service Date/Time: Sunday, December 04, 2016 16:11 - CONCLUSION: Negative trauma CT brain. Reynold Tineo MD Chest X-Ray 12/04/161606 Signed Impressions: Service Date/Time: Sunday, December 04, 2016 15:52 - CONCLUSION: Negative supine view of the chest. Reynold Tineo MD Cervical Spine CT 12/04/16 1607 Signed Impressions: Service Date/Time: Sunday, December 04, 2016 16:11 - CONCLUSION: No evidence of compression deformity or spondylolisthesis. Reynold Tineo MD Lumbar Spine MRI 12/04/16 0000 Signed Impressions: Service Date/Time: Sunday, December 04, 2016 18:27 - CONCLUSION: 1. There is some mild narrowing of the thecal sac due to posterior fatty hypertrophy from mid L2 to mid L3. The AP dimension of the thecal sac is narrowed to 7 mm. 2. Some mild enhancing tissue posterior to the L4 and L5 level without significant deformity of the thecal sac. There is also mild enhancement in the marrow of L4 and L5 about the surgical level, but no abnormal enhancement within the disc space. 3. Bony neural foramina are widely patent. The posterior margin of thecal sac at the laminectomy sites is smooth without impression. Reynold Tineo MD Entire Spine MRI 12/04/16 0000 Signed Impressions: Service Date/Time: Sunday, December 04, 2016 18:59 - CONCLUSION: 1. Small disc protrusions left paracentral T4-T5 and lateral T6-7 without evidence of cord compression. 2. No epidural abnormalities. The vertebral bodies are in normal alignment with normal signal. Reynold iTneo MD Attending Statement Neuro. has been in rather dramatic improvement in his condition. I review with his follow up MRI of lumbar, thoracic, cervical spine. No surgical intervention is indicated I would defer syncope workup to the neurologist Pulmonary. aggressive pulmonary toilette, nasotracheal suction, and breathing treatments with nebulizers. PT and OT evaluation Nutrition. Oral diet Renal. monitor closely urine output, BUN and creatinine Endocrine. Monitor serial Acu checks and SSI as needed in detail ID monitor for signs of infection Protonix for stress ulcer prophylaxis Chucky hose and SCD's for DVT prophylaxis Keith Hoang MD Dec 05, 2016 18:14
[2016-12-05] MEDS ORDERED: CLON2TAB PO (19:21)
[2016-12-05] MEDS ORDERED: CYMB60CA PO (19:21)
[2016-12-05] MEDS: FAMOTIDINE 20 MG TAB PO SCH (20:52)
[2016-12-05] MEDS ORDERED: DULoxetine HCl DR 60 MG CAP PO SCH (22:57)
[2016-12-05] MEDS: clonazePAM 1 MG TAB PO SCH (23:46)
[2016-12-06] VITALS: BP 117/74; PULSE 72; RESP 16; TEMP 95.7; O2SAT 96
[2016-12-06] MEDS: HYDROmorphone HCL PF 1 MG/ML VIAL IVP PRN (01:38)
[2016-12-06 04:00] VITALS: BP 121/77; PULSE 73; RESP 16; TEMP 96.9; O2SAT 95
[2016-12-06] MEDS: CHLORHEXIDINE GLUCONATE 2 % 1 PACK (2 CLOTHS) TOP SCH (04:00)
--- NOTE | 2016-12-06 06:51 | MB ---
cc: EDITH HOLLY DATE OF CONSULTATION 12/05/2016 REASON FOR CONSULTATION "Unable to feel LE." HISTORY OF PRESENT ILLNESS Mr. Jay is an 41-year-old male who was brought to the emergency room at [facility] by [facility] as a Trauma Alert. The patient states that he was walking in his room, he tripped on the side of the bed and fell and he was unable to move and he had no feeling in his both lower extremities. He denies loss of consciousness, convulsions. There is a possibility of drinking by past report and he was brought as a Trauma Alert with complaint of less sensation to his both lower extremities as well as severe back pain. He denies any sphincter control disturbances. The patient has had multiple surgeries to the back. REVIEW OF SYSTEMS A 12-point review of systems is negative except for what is stated in the HPI. ALLERGIES MORPHINE. VALIUM. PAST MEDICAL HISTORY Chronic back pain. Anxiety. PAST SURGICAL HISTORY Lumbar spine procedures/surgical intervention, laminectomy and fusion. FAMILY HISTORY Noncontributory. MEDICATIONS He is on several pain medications and antianxiety medication and narcotics. SOCIAL HISTORY Denies alcohol, tobacco and illicit drug abuse. FAMILY HISTORY Noncontributory. PHYSICAL EXAMINATION GENERAL: Lays in bed in mild distress due to pain. Good historian. HEENT: Atraumatic, normocephalic. Intact hearing, intact vision. NECK: No signs of meningeal irritation. No carotid bruit. LUNGS: Clear to auscultation. No wheezes. CARDIOVASCULAR: Regular rate and rhythm. GASTROINTESTINAL: Soft, nontender. MUSCULOSKELETAL: No deformities NEUROLOGICAL: Awake, alert, oriented to time, person and place. No dysphasia. No dysarthria. Cranial nerves II-XII are grossly intact. Motor system examination of bilateral upper extremities 5/5. Normal tone. No abnormal movement. Lower extremities weak, grade 5-/5 bilateral and symmetrical with a lot of give-away due to pain. No abnormal movements. Reflexes 2+ bilateral and symmetrical. Plantars are bilaterally downgoing. Sensation is intact to superficial touch and temperature bilateral and symmetrical. Fxqlry-[id number], [id number] are intact. Stance is normal. No ataxia. Slow tandem gait. DIAGNOSTIC IMAGING STUDIES - Lumbar spine MRI revealed mild narrowing of the thecal sac due to posterior fatty hypertrophy from mid L2 to mid-L3. The AP dimension of the thecal sac is narrowed to 7 mm.1 - Mild enhancing tissue posterior to the L4-L5 without significant deformity with fecal sac. Mild enhancement in the marrow of L4-5 about the surgical level but no abnormal enhancement. Bony neural foramina are widely patent. The posterior margin of the thecal sac at the laminectomy site is smooth, without compression. - ENTIRE SPINE MRI- Small disk protrusions of left paracentral T4-5 and lateral T6-7 without evidence of cord compression. No epidural abnormalities. The vertebral bodies are in normal alignment with a normal signal. Thoracic spine CT without contrast. - THORACIC SPINE CT Without contrast revealed normal alignment of the vertebral bodies. - LUMBAR SPINE CT No evidence of compression of cord or spondylolisthesis. Prior surgery with aminectomy, fusion mass and interspace plugs L4-S1. - HEAD CT SCAN Negative. - CERVICAL SPINE CT Without contrast, was reported with no evidence of compression deformity or spondylolisthesis. DIAGNOSTIC IMPRESSION 1. Chronic back pain. 2. Bilateral lower extremity weakness status post laminectomy. 3. Falls. 4. Possible syncope. PLAN 1. Neuro checks q. 4 hourly. 2. Carotid ultrasound. 3. Cardiac echo. 4. Pain management by the attending. 5. Neurosurgical evaluation. 6. DVT prophylaxis. 7. Fall precautions. Thank you for the opportunity to participate in care of the patient. MD AMNA Jose/CRYS /11:45 PM /6:[address]
[2016-12-06 08:00] VITALS: BP 153/87; PULSE 65; RESP 18; TEMP 97.7; O2SAT 96
--- NOTE | 2016-12-06 08:55 | RADRPT ---
EXAM DATE/TIME: 12/06/2016 08:11 [place] COMPARISON: No previous studies available for comparison. INDICATIONS : Syncope. MEDICAL HISTORY : Anxiety. Migraines. Head trauma. SURGICAL HISTORY : Laminectomy. Left rotator cuff repair. Hiatal hernia repair. Abdominal he rnia repair. ENCOUNTER: Initial ACUITY: 3 days PAIN SCORE: 8/10 LOCATION: Bilateral neck PEAK SYSTOLIC VELOCITIES (cm/sec): ICA/CCA RATIO: Right: 0.7 Left: 1.0 ICA: Right: 72.5 Left: 94.5 CCA: Right: 100.3 Left: 95.0 ECA: Right: 92.4 Left: 80.6 VERTEBRAL: Right: 42.8 antegrade Left: 45.6 antegrade Elevated flow velocities and ICA/CCA ratios have been found to correlate with increased degrees of vessel stenosis, calculated as percentage of diameter relative to a normal segment of distal ICA/CCA FINDINGS: RIGHT CAROTID: No significant stenosis is visualized. The waveforms are within normal limits. LEFT CAROTID: No significant stenosis is visualized. The waveforms are within normal limits. VERTEBRAL ARTERIES: Antegrade flow is seen in both vertebral arteries. MISCELLANEOUS: None. CONCLUSION: 1. Unremarkable duplex ultrasound examination of the carotid arteries. No significant stenosis. Omari Brennan MD on December 06, 2016 at 8:49 Board Certified Radiologist. This report was verified electronically.
[2016-12-06] MEDS ORDERED: LACTULOSE SYRUP 20 GM/30 ML CUP PO SCH (09:00)
[2016-12-06] MEDS: DOCUSATE SODIUM 100 MG CAP PO SCH (09:24)
[2016-12-06] MEDS: FAMOTIDINE 20 MG TAB PO SCH (09:24)
[2016-12-06] MEDS: clonazePAM 1 MG TAB PO SCH (09:24)
[2016-12-06] MEDS: ACETAMINOPHEN/HYDROcodone 325 MG/5 MG TAB PO PRN ×2 (09:25→13:29)
[2016-12-06 12:28] VITALS: BP 139/92; PULSE 75; RESP 16; TEMP 97.8; O2SAT 97
--- NOTE | 2016-12-06 15:27 | HHI.DS ---
Discharge Summary Admission Date Dec 04, 2016 at 17:54 Discharge Date: Dec 06, 2016 Admitting Diagnosis Trauma, Gait dysfunction Brief History S/P Trauma: Fall CBC/BMP: 12/05/16 0400 12/05/16 0400 Significant Findings Laboratory Tests Test 12/04/16 12/05/16 16:05 04:00 Red Blood Count 4.17 MIL/MM3 3.91 MIL/MM3 (4.50-5.90) (4.50-5.90) Bedside Glucose 97 MG/DL (60-95) Troponin I LESS THAN 0.02 NG/ML (0.02-0.05) Hematocrit 38.3 % (39.0-51.0) Chloride Level 109 MEQ/L (98-107) Estimat Glomerular Filtration 83 ML/MIN (>89) Rate Calcium Level 8.0 MG/DL (8.5-10.1) Aspartate Amino Transf 13 U/L (15-37) (AST/SGOT) Total Protein 6.2 GM/DL (6.4-8.2) Albumin 2.9 GM/DL (3.4-5.0) Imaging Last Impressions Carotid Artery Ultrasound 12/06/16 0000 Signed Impressions: Service Date/Time: Tuesday, December 06, 2016 08:11 - CONCLUSION: 1. Unremarkable duplex ultrasound examination of the carotid arteries. No significant stenosis. Omari Brennan MD Thoracic Spine CT 12/04/161606 Signed Impressions: Service Date/Time: Sunday, December 04, 2016 16:15 - CONCLUSION: Negative trauma CT of the thoracic spine. Reynold Tineo MD Pelvis X-Ray 12/04/161606 Signed Impressions: Service Date/Time: Sunday, December 04, 2016 15:52 - CONCLUSION: The bony pelvic ring is grossly intact. Reynold Tineo MD Lumbar Spine CT 12/04/161606 Signed Impressions: Service Date/Time: Sunday, December 04, 2016 16:15 - CONCLUSION: 1. No evidence of compression of cord or spondylolisthesis. 2. Prior surgery with laminectomy , fusion mass, and interspace plugs L4-S1. Reynold Tineo MD Head CT 12/04/161606 Signed Impressions: Service Date/Time: Sunday, December 04, 2016 16:11 - CONCLUSION: Negative trauma CT brain. Reynold Tineo MD Chest X-Ray 12/04/16 1607 Signed Impressions: Service Date/Time: Sunday, December 04, 2016 15:52 - CONCLUSION: Negative supine view of the chest. Reynold Tineo MD Cervical Spine CT 12/04/16 1607 Signed Impressions: Service Date/Time: Sunday, December 04, 2016 16:11 - CONCLUSION: No evidence of compression deformity or spondylolisthesis. Reynold Tineo MD Lumbar Spine MRI 12/04/16 0000 Signed Impressions: Service Date/Time: Sunday, December 04, 2016 18:27 - CONCLUSION: 1. There is some mild narrowing of the thecal sac due to posterior fatty hypertrophy from mid L2 to mid L3. The AP dimension of the thecal sac is narrowed to 7 mm. 2. Some mild enhancing tissue posterior to the L4 and L5 level without significant deformity of the thecal sac. There is also mild enhancement in the marrow of L4 and L5 about the surgical level, but no abnormal enhancement within the disc space. 3. Bony neural foramina are widely patent. The posterior margin of thecal sac at the laminectomy sites is smooth without impression. Reynold Tineo MD Entire Spine MRI 12/04/16 0000 Signed Impressions: Service Date/Time: Sunday, December 04, 2016 18:59 - CONCLUSION: 1. Small disc protrusions left paracentral T4-T5 and lateral T6-7 without evidence of cord compression. 2. No epidural abnormalities. The vertebral bodies are in normal alignment with normal signal. Reynold Tineo MD PE at Discharge GENERAL: 41-year-old well-nourished, well developed male lying in bed. SKIN: Warm and dry. HEAD: Normocephalic. NECK: Trachea midline. No JVD. CARDIOVASCULAR: Regular rate and rhythm. RESPIRATORY: No accessory muscle use. Lungs clear to auscultation. Breath sounds equal bilaterally. GASTROINTESTINAL: Abdomen soft, non-tender, nondistended. + BS. MUSCULOSKELETAL: Extremities without cyanosis, or edema. No obvious deformities. BUE 5/5 strength, BLE 4/5 strength. + pulses x4. NEUROLOGICAL: Awake and alert. Normal speech. Hospital Course [place]: Syncopal episode at home, unable to feel/move BLE post fall. INJURIES: None- BLE numbness PMHx: lumbar laminectomy Diet: Regular, tolerating Pulm: IS, encourage patient use Pain: [place], Dilaudid IV. Activity: OOB. PT ordered, no home needs. GI: Pepcid Bowel: Colace, MOM, lactulose. DVT: SCDs BLE numbness Neurosurgery consulted, and cleared for discharge MRI spine- small protrusions in thoracic spine. No canal compromise. Serial neuro checks Supportive care Pain control PTOOB Neurology consulted- follow-up as outpatient Echo pending Carotid ultrasound negative Follow-up with pain management as outpatient Follow-up with PCP in 1 week Plan of care discussed with patient at bedside. Patient is clear from trauma surgery standpoint to safely discharge home. Pt Condition on Discharge: Stable Discharge Disposition: Discharge Home Discharge Instructions DIET: Follow Instructions for: As Tolerated, No Restrictions Activities you can perform: Regular-No Restrictions Attending Statement The exam, history, and the medical decision-making described in the above note were completed with the assistance of the mid-level provider. I reviewed and agree with the findings presented. I attest that I had a [id number] encounter with the patient on the same day, and personally performed and documented my assessment and findings in the medical record. Kameron Martinez Dec 06, 2016 15:27 Yoni Marquez MD Dec 06, 2016 15:47
--- NOTE | 2016-12-06 17:14 | EC ---
Study Study Date:12/06/2016 STUDY CONCLUSIONS SUMMARY LEFT VENTRICLE: The cavity size was normal. Wall thickness was normal. Systolic function was normal. The estimated ejection fraction was in the range of 55% to 60%. Wall motion was normal; there were no regional wall motion abnormalities. If LV function is below 40, please consider prescribing an ACEI or ARB or document rationale for non-use. PROCEDURE DATA STUDY STATUS: Elective. Procedure: Transthoracic echocardiography. Image quality was good. Scanning was performed from the parasternal, apical, and subcostal acoustic windows. Study completion: The patient tolerated the procedure well. Transthoracic echocardiography. M-mode, complete 2D, complete spectral Doppler, and color Doppler. Patient status: Inpatient. CARDIAC ANATOMY LEFT VENTRICLE: The cavity size was normal. Wall thickness was normal. Systolic function was normal. The estimated ejection fraction was in the range of 55% to 60%. Wall motion was normal; there were no regional wall motion abnormalities. AORTIC VALVE: Trileaflet; normal thickness leaflets. Doppler: Transvalvular velocity was within the normal range. There was no stenosis. No regurgitation. AORTA: Aortic root: The aortic root was normal in size. MITRAL VALVE: Structurally normal valve. Doppler: Transvalvular velocity was within the normal range. There was no evidence for stenosis. No regurgitation. Peak gradient: 2mm Hg (D). LEFT ATRIUM: The atrium was normal in size. RIGHT VENTRICLE: The cavity size was normal. Wall thickness was normal. PULMONIC VALVE: Doppler: Transvalvular velocity was within the normal range. There was no evidence for stenosis. No regurgitation. TRICUSPID VALVE: Structurally normal valve. Doppler: Transvalvular velocity was within the normal range. No regurgitation. PULMONARY ARTERY: The main pulmonary artery was normal-sized. Systolic pressure was within the normal range. RIGHT ATRIUM: The atrium was normal in size. PERICARDIUM: There was no pericardial effusion. SYSTEMIC VEINS: Inferior vena cava: The vessel was normal in size. BASIC MEASUREMENTS ADULT Normal Left ventricle LV internal dimension, ED, chordal level, 51.8 mm 43-52 PLAX LV internal dimension, ES, chordal level, 36.1 mm 23-38 PLAX Fractional shortening, chordal level, PLAX 30 % >29 LV posterior wall thickness, ED 7.24 mm IVS/LVPW ratio, ED *1.53 <1.3 Ventricular septum Septal thickness, ED 11.1 mm Left atrium Anterior-posterior dimension 45 mm Right ventricle RV internal dimension, ED, PLAX 20.8 mm 19-38 DOPPLER MEASUREMENTS ADULT Normal Mitral valve Peak E-wave velocity 72.6 cm/s Peak A-wave velocity 65.6 cm/s Peak gradient, D 2 mm Hg Peak E/A ratio 1.1 Tricuspid valve Regurgitant peak velocity 199 cm/s Peak RV-RA gradient, S 16 mm Hg Maximal regurgitant velocity 199 cm/s LEGEND: Mean values are shown as u=mean value. Asterisk (*) hess values outside specified normal range. Prepared and signed by Mihir Ortiz-[id number]
== END 2016-12-06 14:01 | disposition home or self-care (01) | DRG 93 ==
LOC: NEPI 15:59 → EDBD 17:54 → NEDA 17:54 → N03B 21:06 → N05B 12-05 11:11
PROVIDERS: ADMIT Surgery; ATTEND Surgery
DX: R20.0 Anesthesia of skin (principal); R55 Syncope and collapse; R53.1 Weakness; W01.0XXA Fall on same level from slipping, tripping and stumbling without subsequent striking against object, initial encounter; Y92.009 Unspecified place in unspecified non-institutional (private) residence as the place of occurrence of the external cause; Z98.1 Arthrodesis status; G89.29 Other chronic pain; M54.9 Dorsalgia, unspecified; F41.9 Anxiety disorder, unspecified; R26.9 Unspecified abnormalities of gait and mobility
CPT/HCPCS: 70450; 71010; 72125; 72128; 72131; 72156; 72158; 72170; 80053; 82435; 82550; 82565; 82947; 84132; 84295; 84484; 84520; 85025; 85610; 85730; 86850; 86900; 86901; 87641; 93005; 93306; 93880; 94150; 99291; A9579; C9113; G0390; J1170; J1200; J2060; J7030

== ENCOUNTER 2017-04-14 18:58 | Emergency (ER) | payer MEDICARE, OTHER ==
[~2017-04-14] VITALS: Ht 182.9 cm; Wt 97.0 kg
[~2017-04-14 18:58] MED LIST: CLON2TAB PO; CYMB60CA PO
[2017-04-14 19:04] VITALS: BP 158/113; PULSE 109; RESP 16; TEMP 98.6; O2SAT 96
[2017-04-14] MEDS ORDERED: OXYC1TAB36 PO (19:31)
[2017-04-14] MEDS ORDERED: CLON1TAB PO (19:31)
--- NOTE | 2017-04-14 20:31 | PD ---
HPI Chief Complaint: Injury Time Seen by Provider: 20:24 Travel History International Travel<30 days: No Contact w/Intl Traveler<30days: No Traveled to known affect area: No History of Present Illness HPI 41 year white male presents to emergency department with complains of right knee pain. He states that his right knee has been bothering him now for the past 1-2 weeks. He states that it initially had started after he was climbing up and down stairs and had twisted awkwardly. Since then it has been giving him problems with ambulation. Today he states that he gave out and twisted. He states that the pain became severe. He has a history of chronic back pain and takes Percocet and Klonopin for anxiety. He denies any numbness or tingling. Some relief with the Percocet. Pain is worse with and relating. History of a medial collateral ligament injury in high school playing football. PFSH Past Medical History Narrative Medical Anxiety, depression, chronic back pain Arthritis: No Asthma: No Autoimmune Disease: No Anxiety: Yes Depression: Yes Heart Rhythm Problems: No Cancer: No Cardiovascular Problems: No High Cholesterol: No COPD: No Cerebrovascular Accident: No Diabetes: No Endocrine: No Gastrointestinal Disorders: Yes GERD: No Genitourinary: No Hiatal Hernia: Yes Immune Disorder: No Musculoskeletal: Yes Neurologic: No Psychiatric: Yes Reproductive: No Respiratory: No Immunizations Current: Yes Migraines: Yes (rarely) Seizures: No Thyroid Disease: No Ulcer: No Tetanus Vaccination: < 5 Years Past Surgical History Narrative Surgical Abdominal hernia repair, inguinal herniorrhaphy, back surgery 4, rotator cuff repair Abdominal Surgery: Yes (hiatal hernia repair, abdominal hernia repair) Cardiac Surgery: No Ear Surgery: No Endocrine Surgery: No Eye Surgery: No Genitourinary Surgery: No Gynecologic Surgery: No Joint Replacement: Yes Neurologic Surgery: Yes (laminectomy) Oral Surgery: Yes Thoracic Surgery: No Other Surgery: Yes Social History Alcohol Use: Yes (OCC) Tobacco Use: Yes Substance Use: No Allergies-Medications (Allergen,Severity, Reaction): Coded Allergies: diazepam (Unverified Allergy, Severe, 04/14/17) morphine (Unverified Allergy, Severe, 04/14/17) childhood reaction Reported Meds & Prescriptions Reported Meds & Active Scripts Active Reported Oxycodone-Acetaminophen 10-325 mg Tab 1 Tab PO Q12HR PRN Clonazepam 1 Mg Tab 1 Mg PO TID Review of Systems Except as stated in HPI: all other systems reviewed are Neg Physical Exam Narrative GENERAL: This is a well-nourished, well-developed patient, in no apparent distress. SKIN: No rashes, ecchymoses or lesions. Warm and dry. HEAD: Atraumatic. Normocephalic. EYES: PERRL, EOMI, no discharge or injection. No scleral icterus. EARS: Clear NOSE: Nasal turbinates appear normal. THROAT: Mucosa pink and moist. Airway patent. NECK: Trachea midline. supple, moves head freely. LUNGS: Clear to auscultation. CV: Regular in rhythm. ABDOMEN: Soft nontender. EXT: No clubbing cyanosis or edema. Examination of the right lower extremity reveals no obvious joint effusion. He is able to fully extend but has limited flexion due to pain. Patient complains of pain to the medial component of the knee. There is no erythema or warmth. No anterior posterior draw. No medial lateral collateral ligament instability. Patient has no pain in the hip, ankle , foot. He has intact sensation with good distal pulses. Data Data Last Documented VS Vital Signs Date Time Temp Pulse Resp B/P (MAP) Pulse Ox O2 Delivery O2 Flow Rate FiO2 04/14/17 19:04 98.6 109 16 158/113 (128) 96 Room Air Orders Orders Knee, Complete (4vws) (04/14/17 20:28) Ice/Cold Pack (04/14/17 20:33) Ketorolac Inj (Toradol Inj) (04/14/17 20:45) Splint Or Brace Apply/Monitor (04/14/17 20:46) Crutches (04/14/17 20:46) MDM Medical Decision Making Medical Screen Exam Complete: Yes Emergency Medical Condition: Yes Medical Record Reviewed: Yes Interpretation(s) Right knee: Negative for fracture. Mild degenerative changes. Mild joint effusion. Differential Diagnosis MDM: High Differential diagnoses: Fracture, sprain, strain, dislocation, contusion, neurovascular injury Narrative Course X-ray of the right knee reveals no acute bony injury. Patient does have a small joint effusion. Patient is placed in a knee immobilizer and given crutches. Icepack applied. Toradol 60 mg IM. This is right knee pain rule out meniscal injury Diagnosis Primary Impression: Right knee pain Qualified Codes: M25.561 - Pain in right knee Patient Instructions: General Instructions Additional Instructions: Rest. Elevation. Ice packs for the next 3 days. Knee immobilizer and crutches. No weight-bearing and then progress to weight-bearing as tolerated. Contact your pain doctor for adjustment of your pain medications. Diclofenac. Follow-up with an orthopedist or your doctor in one week. Return to the ER if any problems Med/Other Pt SpecificInfo: Prescription(s) given Disposition: 01 DISCHARGE HOME Condition: Stable Sebas Pitts Apr 14, 2017 20:31
[2017-04-14] MEDS ORDERED: KETOROLAC TROMETHAMINE 60 MG/2 ML (IM) VIAL IM ONE (20:45)
[2017-04-14] MEDS ORDERED: DICL75TA PO (21:09)
--- NOTE | 2017-04-14 21:19 | RADRPT ---
EXAM DATE/TIME: 04/14/2017 20:55 [facility] COMPARISON: No previous studies available for comparison. INDICATIONS : Right knee pain and weakness. MEDICAL HISTORY : None. SURGICAL HISTORY : None. ENCOUNTER: Initial ACUITY: 2 weeks PAIN SCORE: 10/10 LOCATION: Right medial knee. FINDINGS: Four view examination of the right knee demonstrates no evidence of fracture or dislocation. Bony mi neralization is normal. The articular surfaces are intact. The suprapatellar soft tissues have a no rmal configuration. CONCLUSION: Normal examination for a patient of this age. Sebas Coker MD on April 14, 2017 at 21:16 Board Certified Radiologist. This report was verified electronically.
[2017-04-14 22:00] VITALS: RESP 16
[2017-04-14 22:08] VITALS: BP 144/98
== END 2017-04-14 22:28 | disposition home or self-care (01) ==
LOC: NEPD 18:58
DX: M25.561 Pain in right knee (principal); F41.9 Anxiety disorder, unspecified; F32.9 Major depressive disorder, single episode, unspecified; G89.29 Other chronic pain; F17.200 Nicotine dependence, unspecified, uncomplicated
CPT/HCPCS: 73564; 96372; 99284; E0113; J1885; L1830